=== PATIENT | female | born 1980 | race Hispanic/Latino ===

== ENCOUNTER 2017-06-12 17:37 | Emergency (ER) | payer MEDICAID, OTHER ==
[2017-06-12 18:24] LABS: APPEARANCE,URINE Clear (CLEAR); BASOPHILS % (AUTO) 0.6 % (0.0-5.0); BILIRUBIN,URINE Negative (NEGATIVE); COLOR,URINE Yellow (YELLOW); EOSINOPHILS % (AUTO) 3.7 % (0.0-8.0); GLUCOSE, URINE (UA) Negative (NEGATIVE); HEMATOCRIT 37.9 % (36-48); KETONES,URINE Negative (NEGATIVE); LEUKOCYTE ESTERASE ,URINE Small (NEGATIVE); LYMPHOCYTES % (AUTO) 21.5 % (21.0-51.0); MEAN CORPUSCULAR HEMOGLOBIN 29.5 pg (27.0-33.0); MEAN CORPUSCULAR HGB CONC 34.9 g/dL (32.0-36.0); MEAN CORPUSCULAR VOLUME 84.5 fL (79-99); MONOCYTES % (AUTO) 8.2 % (3.0-13.0); NITRATE,URINE Negative (NEGATIVE); OCCULT BLOOD,URINE Negative (NEGATIVE); PH,URINE 8.5 (5.0-8.0); PLATELET COUNT (AUTO) 306 K/uL (130-400); PROTEIN,URINE Negative (NEGATIVE); RED BLOOD CELL COUNT(AUTO) 4.49 MIL/uL (4.00-5.50); RED CELL DISTRIBUTION WIDTH 14.3 % (11.0-15.5); WHITE BLOOD COUNT (AUTO) 6.2 K/uL (4.8-10.8)
[2017-06-12 18:38] LABS: CREATININE 0.8 mg/dL (0.5-1.5); POTASSIUM 3.7 mmol/L (3.5-5.1)
[2017-06-12 18:44] LABS: BACTERIA,URINE Few /HPF (None Seen); RBC,URINE 0-1 /HPF (0-1); SQUAMOUS EPITHELIAL CELL,UR Few /LPF (0-2)
[2017-06-12 19:04] LABS: ALBUMIN 2.7 g/dL (3.5-5.0); BILIRUBIN,TOTAL 0.2 mg/dL (0.2-1.0); TOTAL PROTEIN, SERUM 5.7 g/dL (6.0-8.3)
== END 2017-06-12 20:20 | disposition home or self-care (01) ==
LOC: EDH 17:37
DX: O26.891 Other specified pregnancy related conditions, first trimester (principal); R10.2 Pelvic and perineal pain; Z3A.01 Less than 8 weeks gestation of pregnancy; Z90.49 Acquired absence of other specified parts of digestive tract; Z98.890 Other specified postprocedural states; Z87.891 Personal history of nicotine dependence
CPT/HCPCS: 36415; 76817; 80053; 81001; 84702; 85025

== ENCOUNTER 2018-01-19 08:21 | Inpatient (IN) | payer MEDICAID ==
[~2018-01-19] VITALS: Ht 162.6 cm; Wt 104.8 kg
[~2018-01-19 08:21] MED LIST: PREN-196 PO
[2018-01-19 09:21] LABS: APPEARANCE,URINE Cloudy (CLEAR); BILIRUBIN,URINE Negative (NEGATIVE); COLOR,URINE Yellow (YELLOW); GLUCOSE, URINE (UA) Negative (NEGATIVE); KETONES,URINE Negative (NEGATIVE); LEUKOCYTE ESTERASE ,URINE Large (NEGATIVE); NITRATE,URINE Negative (NEGATIVE); OCCULT BLOOD,URINE Trace (NEGATIVE); PH,URINE 6.5 (5.0-8.0); PROTEIN,URINE POS 1+ (NEGATIVE); UROBILINOGEN,URINE 0.2 mg/dL (0.2-1.0)
[2018-01-19 09:27] LABS: BACTERIA,URINE Few /HPF (None Seen); RBC,URINE 0-1 /HPF (0-1); TRICHOMONAS,URINE Few /LPF (None Seen); WBC,URINE 26-50 /HPF (0-1)
[2018-01-19 09:28] LABS: SQUAMOUS EPITHELIAL CELL,UR Few /HPF (0-2)
[2018-01-19] MEDS ORDERED: LACTATED RINGERS 1000ML 1,000 ML IV PRN (10:01)
[2018-01-19 11:05] LABS: HEMATOCRIT 31.1 % (36-48); MEAN CORPUSCULAR HEMOGLOBIN 26.6 pg (27.0-33.0); MEAN CORPUSCULAR HGB CONC 33.5 g/dL (32.0-36.0); MEAN CORPUSCULAR VOLUME 79.3 fL (79-99); PLATELET COUNT (AUTO) 273 K/uL (130-400); RED BLOOD CELL COUNT(AUTO) 3.92 MIL/uL (4.00-5.50); RED CELL DISTRIBUTION WIDTH 13.8 % (11.0-15.5); WHITE BLOOD COUNT (AUTO) 11.3 K/uL (4.8-10.8)
[2018-01-19] MEDS ORDERED: MORPHINE SULFATE 10 MG/ML 1ML VIAL ONE (13:40)
[2018-01-19] MEDS ORDERED: MORPHINE SULFATE 10 MG/ML 1ML VIAL SQ ONE (13:45)
[2018-01-19] MEDS ORDERED: CEFAZOLIN SODIUM 1 GM VIAL IVP PRN (18:15)
[2018-01-19] MEDS ORDERED: LACTATED RINGERS 1000ML 1,000 ML IV SCH (18:15)
[2018-01-19] MEDS ORDERED: CEFAZOLIN SODIUM 1 GM VIAL ONE (18:19)
[2018-01-19] MEDS ORDERED: DURAMORPH PF1 MG/ML 10ML AMP IV ONE (18:31)
[2018-01-19] MEDS ORDERED: CEFAZOLIN SODIUM 1 GM VIAL IVP ONE (18:55)
[2018-01-19] MEDS ORDERED: ONDANSETRON HCL 4 MG/2 ML VIAL ONE ×2 (19:07→22:07)
[2018-01-19] MEDS ORDERED: MIDAZOLAM HCL 1 MG/ML 2ML VIAL ONE ×2 (19:18→20:30)
[2018-01-19] MEDS ORDERED: OXYTOCIN 10 UNIT/1ML 10ML VIAL ONE (19:31)
[2018-01-19] MEDS ORDERED: FENTANYL CITRATE PF 50 MCG/1 ML 2ML VIAL ONE (20:29)
[2018-01-19] MEDS ORDERED: DiphenhydrAMINE HCL 50 MG/ML VIAL ONE (20:39)
[2018-01-19] MEDS ORDERED: MORPHINE SULFATE 2 MG/ML 1ML SYG ONE (21:36)
[2018-01-19] MEDS ORDERED: OXYTOCIN-LR 20 UNITS/1000 ML 1,000 ML IV PRN (22:41)
[2018-01-19] MEDS ORDERED: PROMETHAZINE HCL 25 MG/ML 1ML AMPULE IM PRN ×2 (22:45→23:00)
[2018-01-19] MEDS ORDERED: SODIUM CHLORIDE 0.9% 10 ML VIAL IVP PRN (22:45)
[2018-01-19] MEDS ORDERED: MEPERIDINE-PF 75 MG/ML SYG IM PRN (22:45)
[2018-01-19] MEDS ORDERED: DEXTROSE 5 %-0.45 % NACL 1,000 ML IV PRN (22:45)
[2018-01-19] MEDS ORDERED: ONDANSETRON HCL 4 MG/2 ML VIAL IVP PRN (23:00)
[2018-01-19] MEDS ORDERED: ONDANSETRON HCL 4 MG/2 ML 8 MG in SODIUM CHLORIDE 0.9% 50 ML IVP NR (23:00)
[2018-01-19] MEDS ORDERED: METOCLOPRAMIDE 10 MG/2 ML VIAL IVP PRN (23:00)
[2018-01-19] MEDS ORDERED: MORPHINE SULFATE 2 MG/ML 1ML SYG IVP PRN (23:00)
[2018-01-19] MEDS ORDERED: ONDANSETRON HCL MDV 20ML 2 MG/ML VIAL IVP PRN (23:00)
[2018-01-19] MEDS ORDERED: HYDROCODONE/ACETAMINOPHEN 5/325 MG TAB PO PRN (23:00)
[2018-01-19] MEDS ORDERED: DiphenhydrAMINE HCL 50 MG/ML VIAL IVP PRN (23:00)
[2018-01-19] MEDS ORDERED: NALOXONE HCL 0.4 MG/1 ML ML IVP PRN ×2 (23:00)
[2018-01-19] MEDS ORDERED: EPHEDRINE SULFATE 50 MG/ML AMPULE IVP PRN (23:00)
[2018-01-20] VITALS (7 sets, daily range): BP systolic 97–135; BP diastolic 57–79
[2018-01-20] MEDS ORDERED: PREN-94 PO (01:08)
[2018-01-20] MEDS ORDERED: ESOM20TA PO (01:12)
[2018-01-20] MEDS: HYDROCODONE/ACETAMINOPHEN 5/325 MG TAB PO PRN ×2 (02:41→11:34)
[2018-01-20] MEDS ORDERED: DIPH,PERTUSS(ACELL),TET VAC/PF 0.5 ML VIAL IM ONE (04:15)
[2018-01-20 05:30] LABS: HEMATOCRIT 27.2 % (36-48); MEAN CORPUSCULAR HEMOGLOBIN 26.5 pg (27.0-33.0); MEAN CORPUSCULAR HGB CONC 33.5 g/dL (32.0-36.0); PLATELET COUNT (AUTO) 234 K/uL (130-400); RED BLOOD CELL COUNT(AUTO) 3.44 MIL/uL (4.00-5.50); RED CELL DISTRIBUTION WIDTH 13.6 % (11.0-15.5); WHITE BLOOD COUNT (AUTO) 11.8 K/uL (4.8-10.8)
[2018-01-20] MEDS ORDERED: MEASLES/MUMPS/RUBELLA VACCINE, LIVE 0.5 ML/VIAL SQ SCH (07:45)
[2018-01-20 08:10] LABS: HEPATITIS Bs ANTIGEN SCREEN P Negative (Negative)
[2018-01-20] MEDS ORDERED: BISACODYL 10 MG SUPP.RECT RC PRN (09:00)
[2018-01-20] MEDS ORDERED: DIPHENHYDRAMINE HCL 25 MG CAPSULE PO PRN (09:00)
[2018-01-20] MEDS: DOCUSATE SODIUM 100 MG CAP PO SCH ×2 (11:23→20:52)
[2018-01-20] MEDS: SIMETHICONE 80 MG TAB.CHEW PO PRN ×4 (11:23→20:52)
[2018-01-20] MEDS: IBUPROFEN 600 MG TABLET PO PRN ×2 (11:24→18:11)
[2018-01-21] MEDS: IBUPROFEN 800 MG TAB PO SCH ×3 (03:04→22:07)
[2018-01-21 04:02] VITALS: BP 125/58
[2018-01-21] MEDS ORDERED: DIPH,PERTUSS(ACELL),TET VAC/PF 0.5 ML VIAL IM SCH (06:30)
[2018-01-21 07:55] VITALS: BP 102/64
[2018-01-21] MEDS: SIMETHICONE 80 MG TAB.CHEW PO PRN ×2 (09:20→22:07)
[2018-01-21] MEDS: DOCUSATE SODIUM 100 MG CAP PO SCH ×2 (09:20→22:07)
[2018-01-21] MEDS: ACETAMINOPHEN-CODEINE 300/30MG TAB PO PRN (09:27)
[2018-01-21 15:22] VITALS: BP 117/70
[2018-01-21 19:36] VITALS: BP 124/73
[2018-01-22] VITALS: BP 118/72
[2018-01-22 04:35] VITALS: BP 133/76
[2018-01-22] MEDS: IBUPROFEN 800 MG TAB PO SCH ×2 (06:29→14:25)
[2018-01-22 07:30] VITALS: BP 109/69
[2018-01-22] MEDS: DOCUSATE SODIUM 100 MG CAP PO SCH (10:25)
[2018-01-22] MEDS: ACETAMINOPHEN-CODEINE 300/30MG TAB PO PRN ×2 (10:29→16:50)
[2018-01-22] MEDS: SIMETHICONE 80 MG TAB.CHEW PO PRN ×2 (10:32→14:24)
[2018-01-22 11:25] VITALS: BP 136/85
[2018-01-22 15:56] VITALS: BP 139/88
== END 2018-01-22 18:35 | disposition home or self-care (01) | DRG 540 ==
LOC: EDH 08:21 → LDH 08:22 → OBSVTOIN 08:22 → WSH 01-20 00:40
PROVIDERS: ADMIT Obstetrics & Gynecology; ATTEND Obstetrics & Gynecology
PROC: 0UCC0ZZ Extirpation of Matter from Cervix, Open Approach (ICD-10-PCS; 2018-01-19)
PROC: 0DNW0ZZ Release Peritoneum, Open Approach (ICD-10-PCS; 2018-01-19)
PROC: 3E0234Z Introduction of Serum, Toxoid and Vaccine into Muscle, Percutaneous Approach (ICD-10-PCS; 2018-01-19)
PROC: 3E0234Z Introduction of Serum, Toxoid and Vaccine into Muscle, Percutaneous Approach (ICD-10-PCS; 2018-01-19)
PROC: 10D00Z1 Extraction of Products of Conception, Low, Open Approach (ICD-10-PCS; principal; 2018-01-19 18:30)
PROC: 3E0134Z Introduction of Serum, Toxoid and Vaccine into Subcutaneous Tissue, Percutaneous Approach (ICD-10-PCS; 2018-01-19 18:30)
DX: O34.211 Maternal care for low transverse scar from previous cesarean delivery (principal); K66.0 Peritoneal adhesions (postprocedural) (postinfection); O42.913 Preterm premature rupture of membranes, unspecified as to length of time between rupture and onset of labor, third trimester; O69.81X0 Labor and delivery complicated by cord around neck, without compression, not applicable or unspecified; O99.62 Diseases of the digestive system complicating childbirth; Z3A.36 36 weeks gestation of pregnancy; Z37.0 Single live birth; Z23 Encounter for immunization
CPT/HCPCS: 36415; 59510; 81001; 85027; 86592; 86850; 86900; 86901; 87340; 88300; 90707; 90715; A4344; A4606; J0690; J1200; J2250; J2270; J2274; J2405; J2590; J3010; J7120; Q2038

== ENCOUNTER 2019-12-03 18:37 | Emergency (ER) | payer MEDICAID, OTHER ==
[~2019-12-03 18:37] MED LIST changes: +PREN-94 PO
[2019-12-03] MEDS ORDERED: SODIUM CHLORIDE 0.9% 1000ML 1,000 ML IV ONE (18:38)
[2019-12-03 19:08] LABS: APPEARANCE,URINE Cloudy (CLEAR); BILIRUBIN,URINE Small (NEGATIVE); COLOR,URINE Orange (YELLOW); GLUCOSE, URINE (UA) Negative (NEGATIVE); KETONES,URINE Negative (NEGATIVE); LEUKOCYTE ESTERASE ,URINE Moderate (NEGATIVE); NITRATE,URINE Negative (NEGATIVE); OCCULT BLOOD,URINE Moderate (NEGATIVE); PH,URINE 5.5 (5.0-8.0); PROTEIN,URINE POS 1+ mg/dL (NEGATIVE)
[2019-12-03 19:09] LABS: BASOPHILS % (AUTO) 0.2 % (0.0-5.0); EOSINOPHILS % (AUTO) 0.1 % (0.0-8.0); HEMATOCRIT 37.1 % (36-48); LYMPHOCYTES % (AUTO) 6.2 % (21.0-51.0); MEAN CORPUSCULAR HEMOGLOBIN 25.5 pg (27.0-33.0); MEAN CORPUSCULAR HGB CONC 32.6 g/dL (32.0-36.0); MEAN CORPUSCULAR VOLUME 78.1 fL (79-99); MONOCYTES % (AUTO) 4.3 % (3.0-13.0); NEUTROPHILS % (AUTO) 88.2 % (40.0-77.0); PLATELET COUNT (AUTO) 333 K/uL (130-400); RED BLOOD CELL COUNT(AUTO) 4.75 MIL/uL (4.00-5.50); RED CELL DISTRIBUTION WIDTH 14.5 % (11.0-15.5); WHITE BLOOD COUNT (AUTO) 27.8 K/uL (4.8-10.8)
[2019-12-03 19:10] LABS: HCG,QUAL RESULT NEGATIVE (NEGATIVE)
[2019-12-03 19:14] LABS: BACTERIA,URINE Few /HPF (None Seen); MUCUS,URINE Few LPF (None Seen); SQUAMOUS EPITHELIAL CELL,UR Moderate /HPF (0-2); TRICHOMONAS,URINE Few /LPF (None Seen)
[2019-12-03 19:20] LABS: CREATININE 0.8 mg/dL (0.5-1.5); POTASSIUM 3.4 mmol/L (3.5-5.1)
[2019-12-03 19:24] LABS: ALBUMIN 3.2 g/dL (3.5-5.0); BILIRUBIN,TOTAL 0.8 mg/dL (0.2-1.0); TOTAL PROTEIN, SERUM 7.2 g/dL (6.0-8.3)
[2019-12-03] MEDS ORDERED: MORPHINE SULFATE 4 MG/1ML SYG ONE (19:39)
[2019-12-03] MEDS ORDERED: ONDANSETRON HCL 4 MG/2 ML VIAL ONE (19:39)
[2019-12-03 20:02] LABS: AMPHET/METH SCREEN,URINE NEGATIVE (NEGATIVE); BARBITURATE SCREEN, URINE NEGATIVE (NEGATIVE); BENZODIAZEPINES SCREEN,URINE NEGATIVE (NEGATIVE); CANNABINOID SCREEN,URINE NEGATIVE (NEGATIVE); COCAINE SCREEN,URINE POSITIVE (NEGATIVE); OPIATE SCREEN,URINE NEGATIVE (NEGATIVE); PHENCYCLIDINE SCREEN,URINE NEGATIVE (NEGATIVE)
== END 2019-12-03 22:43 | disposition home or self-care (01) ==
LOC: EDH 18:37
DX: K52.9 Noninfective gastroenteritis and colitis, unspecified (principal); N39.0 Urinary tract infection, site not specified; A59.9 Trichomoniasis, unspecified; Z72.0 Tobacco use; Z98.890 Other specified postprocedural states
CPT/HCPCS: 36415; 74176; 80053; 80305; 81001; 81025; 83690; 85025; 87088; 96361; 96374; 96375; 99284; J2270; J2405; J7030

== ENCOUNTER 2024-11-24 12:00 | Emergency (ER) | payer BC, MEDICAID ==
[~2024-11-24] VITALS: Ht 165.1 cm; Wt 91.6 kg
[2024-11-24 12:35] LABS: IMMATURE GRANULOCYTE ABSOLUTE 0.04 K/uL (0-1); NUCLEATED RED BLOOD CELLS 0.0 % (0.0-0.19); PLATELET COUNT (AUTO) 414 K/uL (130-400); RED BLOOD CELL COUNT(AUTO) 4.65 MIL/uL (4.00-5.50); RED CELL DISTRIBUTION WIDTH 17.7 % (11.0-15.5); WHITE BLOOD COUNT (AUTO) 6.9 K/uL (4.8-10.8)
[2024-11-24 12:43] LABS: CREATININE 0.5 mg/dL (0.5-1.0); GLOMERULAR FILTR. RATE CALC 120.0 mL/min (>90); GLUCOSE,RANDOM 131.0 mg/dL (70-105); SODIUM SERUM 137.0 mmol/L (136-145); UREA NITROGEN, BLOOD 13.0 mg/dL (7-18)
[2024-11-24 12:49] LABS: CREATINE KINASE, TOTAL 13.0 U/L (21-232)
[2024-11-24 12:52] LABS: APPEARANCE,URINE CLOUDY (CLEAR); GLUCOSE, URINE (UA) 30 mg/dL (NEGATIVE); LEUKOCYTE ESTERASE ,URINE NEGATIVE Leu/uL (NEGATIVE); NITRATE,URINE NEGATIVE (NEGATIVE); OCCULT BLOOD,URINE SMALL (NEGATIVE)
[2024-11-24 12:54] LABS: HCG,QUALITATIVE URINE NEGATIVE (NEGATIVE)
[2024-11-24 13:03] LABS: SQUAMOUS EPITHELIAL CELL,UR MANY /HPF (0-2)
[2024-11-24] MEDS ORDERED: PRED20TA3 PO (14:57)
--- NOTE | 2024-11-24 14:57 | ERN ---
General Chief Complaint: Skin Rash/Abscess Stated Complaint: SPOTS, RASH TO BLE Time Seen by MD: 12:07 Source: patient History of Present Illness Initial Comments In his is a 44-year-old female coming in complaining of rash of the lower extremity. Per patient the rash has been ongoing for two weeks. She has been evaluated by PCP but has not had any relief. Allergies: Coded Allergies: No Known Allergies (Unverified Allergy, Unknown, 07/03/14) Home Meds Reported Medications #103/Iron Fumarate/FA ( Tablet) 1 Each Tablet, 1 EACH PO DAILY, TAB 01/20/18 Vit No.124/Iron/FA ( Vitamin Tablet) 1 Each Tablet, 1 EACH PO DAILY, TAB 11/12/17 Past Medical History Past Medical History: Anxiety, Depression, Sinusitis Past Surgical History: Female( History) LMP: Oct 29, 2024 ROS Dictation CONSTITUTIONAL: No chills, no fever, no weakness, no diaphoresis, no malaise. HEAD/FACE: No signs of trauma. EENT: No eye pain, no blurred vision, no tearing, no double vision, no ear pain, no ear discharge, no nose pain, no nasal congestion, no throat pain, no throat swelling, no mouth pain. RESPIRATORY: No cough, no orthopnea, no SOB, no stridor, no wheezing. CARDIOVASCULAR: No chest pain, no edema, no palpitations, no syncope. GASTROINTESTINAL/ABDOMINAL: No abdominal pain, no constipation, no diarrhea, no nausea, no vomiting. GENITOURINARY: No abnormal discharge, no dysuria, no frequent urination, no hematuria. No complaints of pain in the genitals. MUSCULOSKELETAL: No back pain, no gout, no joint pain, no joint swelling, no muscle pain, no muscle stiffness, no neck pain. INTEGUMENTARY: No change in color, no change in hair/nails, no dryness, no lesion, no lumps, rash. NEUROLOGICAL/PSYCH: No anxiety, not depressed, no emotional problem, no headache, no numbness, no pre-existing deficit, no history of seizures, no tremors, no weakness. HEMATOLOGIC/LYMPHATIC: Not anemic, no history of blood clots, no apparent bleeding, no bruising, glands not swollen. All Systems Negative, Except as Noted. Physical Exam Physical Exam Dictation VITAL SIGNS: Reviewed. GENERAL APPEARANCE: Alert, oriented x3, no acute distress, obese. HEAD AND FACE: Non-traumatic. EYES: PERRL, pink conjunctivas, eyelid no trauma, anterior chamber clear. EARS: Pinnas intact and no signs of trauma or erythema. Ear canals clear and no discharge. TMs no erythema. NOSE: No discharge, no bleeding. OROPHARYNX: Mouth normal, teeth no caries, tongue pink. Pharynx clear, no erythema. Tonsils no exudates, no abscesses noted. Mucous membrane moist. NECK: Supple, non-tender, no thyromegaly, no masses, no JVD, no bruits. BREAST: Deferred. CHEST: No tenderness, no crepitus, no paradoxical movement, no retractions. LUNGS: Clear, well-ventilated, symmetric, no rales, no wheezing, no rhonchi, no stridor, good breath sounds bilaterally. HEART: Regular rate, regular rhythm, no murmur, no gallops. VASCULAR: No peripheral edema. ABDOMEN: Soft, positive bowel sounds, nondistended, no guarding, nontender, no rebound, no masses no hepatomegaly, no splenomegaly, no Bonilla's sign, no hernias. RECTAL: Deferred. GENITAL: Deferred. NEUROLOGICAL: Normal speech, gross motor function intact, gross sensory function intact. MUSCULOSKELETAL: Neck nontender, full range of motion, back nontender, full range of motion. EXTREMITIES: Nontender, full range of motion. SKIN: Color pink, dry, no turgor, purpuric lesions lower extremity bilateral, no lacerations, no abrasions, no contusions. LYMPHATICS: Deferred. Results Laboratory and Microbiology Lab and Micro Result Laboratory Tests Test 11/24/24 12:27 11/24/24 12:44 White Blood Count 6.9 K/uL (4.8-10.8) Red Blood Count 4.65 MIL/uL (4.00-5.50) Hemoglobin 9.5 g/dL (12.0-16.0) L Hematocrit 33.1 % (36-48) L Mean Corpuscular Volume 71.2 fL (79-99) L Mean Corpuscular Hemoglobin 20.4 pg (27.0-33.0) L Mean Corpuscular Hemoglobin Concent 28.7 g/dL (32.0-36.0) L Red Cell Distribution Width 17.7 % (11.0-15.5) H Platelet Count 414 K/uL (130-400) H Mean Platelet Volume 8.5 fL (7.5-10.5) Immature Granulocyte % (Auto) 0.6 % (0-1) Neutrophils (%) (Auto) 77.5 % (40.0-77.0) H Lymphocytes (%) (Auto) 12.2 % (21.0-51.0) L Monocytes (%) (Auto) 6.2 % (3.0-13.0) Eosinophils (%) (Auto) 3.2 % (0.0-8.0) Basophils (%) (Auto) 0.3 % (0.0-5.0) Neutrophils # (Auto) 5.4 K/uL (1.8-7.7) Lymphocytes # (Auto) 0.9 K/uL (1.0-4.8) L Monocytes # (Auto) 0.4 K/uL (0.1-1.0) Eosinophils # (Auto) 0.22 K/uL (0.00-0.70) Basophils # (Auto) 0.02 K/uL (0.00-0.20) Absolute Immature Granulocyte (auto 0.04 K/uL (0-1) Nucleated Red Blood Cells 0.0 % (0.0-0.19) Red Blood Cell Morphology See comments Sodium Level 137 mmol/L (136-145) Potassium Level 4.0 mmol/L (3.5-5.1) Chloride Level 105 mmol/L (101-111) Carbon Dioxide Level 26 mmol/L (21-32) Blood Urea Nitrogen 13 mg/dL (7-18) Creatinine 0.5 mg/dL (0.5-1.0) Glomerular Filtration Rate Calc 120 mL/min (>90) Random Glucose 131 mg/dL (70-105) H Total Calcium 8.7 mg/dL (8.5-10.1) Total Creatine Kinase 13 U/L (21-232) L Urine Color YELLOW (YELLOW) Urine Appearance CLOUDY (CLEAR) H Urine pH 5.5 (5.0-8.0) Urine Specific [place] 1.037 (1.001-1.031) Urine Protein 20 mg/dL (NEGATIVE) H Urine Glucose (UA) 30 mg/dL (NEGATIVE) H Urine Ketones 5 mg/dL (NEGATIVE) H Urine Occult Blood SMALL (NEGATIVE) H Urine Nitrate NEGATIVE (NEGATIVE) Urine Bilirubin NEGATIVE mg/dL (NEGATIVE) Urine Urobilinogen 2.0 mg/dL (0.2-1.0) H Urine Leukocyte Esterase NEGATIVE Angela/uL Urine RBC 2-5 /HPF (0-1) H Urine WBC 2-5 /HPF (0-1) H Urine Squamous Epithelial Cells MANY /HPF (0-2) Urine Bacteria RARE /HPF (None Seen) Urine HCG, Qualitative NEGATIVE (NEGATIVE) Labs Reviewed?: Yes MDM MDM: Differential diagnosis: purpura, vasculitis, rash, Rationale: Tests considered and ordered secondary to shared decision making include: Previous outside records reviewed: Old ER visits. Risk of complication and/or morbidity or mortality of patient management: None Medications-Per medication reconciliation Need for hospitalization: Patient does not meet criteria for hospitalization. Need for emergency major/minor surgery: No Patient is a 44-year-old female coming in complaining of lower extremity rash. Based on the physical findings most likely diagnosis is purpura , possibly due to HSP. Patient will be discharged I advised to follow up with blocker hand as indicated. Medication will be provided for symptomatic relief. ED Course Orders Procedure Category Date Status Time Cbc With Differential LAB 11/24/24 Complete 12:12 Basic Metabolic Panel LAB 11/24/24 Complete 12:12 Creatine Kinase, Total LAB 11/24/24 Complete 12:12 Urinalysis LAB 11/24/24 Complete W/Microscopic 12:12 ,Urine Test LAB 11/24/24 Complete 12:12 Chest 1vw RAD 11/24/24 Taken 14:13 Vital Signs Date Time Temp Pulse Resp B/P (MAP) Pulse Ox O2 Delivery O2 Flow Rate FiO2 11/24/24 12:50 98.6 88 16 128/92 100 Room Air* 0 21 11/24/24 12:02 98.6 93 16 135/79 100 Room Air 0 DX & DISP Disposition: Discharge Departure Impression: Primary Impression: HSP (Henoch Schonlein purpura) Additional Impression: Sarcoidosis of skin Condition: Stable Scripts Prednisone (Prednisone) 20 Mg Tablet 1 TAB PO BID for 5 Days, #10 TAB 0 Refills Prov: STACY JEFF MD 11/24/24 Additional Instructions: FOLLOW-UP WITH PRIMARY CARE PROVIDER IN 1 TO 2 DAYS. TAKE MEDICATIONS DIRECTED HERE IN THE EMERGENCY ROOM. OKAY TO CONTINUE HOME MEDICATIONS UNLESS OTHERWISE DISCUSSED DURING YOUR VISIT IN THE EMERGENCY ROOM TODAY. RETURN TO YOUR NEAREST EMERGENCY ROOM IF SYMPTOMS WORSEN OR IF THERE IS NO IMPROVEMENT. CALL 911 IF YOU NEED IMMEDIATE ASSISTANCE. TAKE TYLENOL [id number] NEEDED AND IF NO CONTRAINDICATIONS ARE PRESENT. INCREASE ORAL HYDRATION. A WOUND CULTURE OR URINE CULTURE WAS ORDERED HERE IN THE EMERGENCY ROOM DEPARTMENT PLEASE FOLLOW-UP WITH PRIMARY CARE PROVIDER AND ADVISE THEM TO GET REPORTS FROM OUR FACILITY. IF YOU HAD ANY MARIA ISABEL WRAP/SPLINTS THAT WERE APPLIED HERE, PLEASE DO NOT REMOVE THEM UNTIL YOU SEE YOUR PRIMARY CARE OR SPECIALTY. Referrals: Referrals: SELF,REFERRAL (PCP) JUANA KHAN LUIS A MD Time of Disposition: 14:56 STACY JEFF MD Nov 24, 2024 14:57
--- NOTE | 2024-11-24 15:16 | HMCIMG ---
EXAM: CR Chest, 1 View. CLINICAL HISTORY: cp COMPARISON: None provided. FINDINGS: LUNGS: There is bibasilar airspace disease (right greater than left) that may reflect pneumonia. PLEURAL SPACES: No pleural effusion or pneumothorax. MEDIASTINUM: Cardiac size and mediastinal contours within normal limits. BONES: No acute osseous abnormality. IMPRESSION: 1. Bibasilar airspace disease, right greater than left, possibly representing pneumonia. /[place]
[2024-11-24 15:25] VITALS: BP 132/78; PULSE 84; RESP 16; TEMP 97.9; O2SAT 98
== END 2024-11-24 15:27 | disposition home or self-care (01) ==
LOC: EDH 12:00
DX: D69.0 Allergic purpura (principal); D86.3 Sarcoidosis of skin; F41.9 Anxiety disorder, unspecified; F32.A Depression, unspecified
CPT/HCPCS: 36415; 71045; 80048; 81001; 81025; 82550; 85025; 99283